=== PATIENT | female | born 1950 | race Two or more races ===

== ENCOUNTER 2022-03-01 14:48 | Outpatient (CLI) | payer OTHER | END 2022-03-01 14:58 | disposition home or self-care (01) | LOC: PPH VACUNA 14:48 | PROVIDERS: ATTEND Emergency Medicine Pediatric Emergency Medicine | DX: Z23 Encounter for immunization (principal) ==

== ENCOUNTER 2022-03-01 14:50 | Outpatient (CLI) | payer OTHER | END 2022-03-01 15:00 | disposition home or self-care (01) | LOC: PPH VACUNA 14:50 | PROVIDERS: ATTEND Emergency Medicine Pediatric Emergency Medicine | DX: Z23 Encounter for immunization (principal) ==

== ENCOUNTER → 2022-07-04 | Outpatient (CLI) | payer OTHER | END | disposition home or self-care (01) | LOC: MAMO-SONO 14:21 | PROVIDERS: ATTEND Obstetrics & Gynecology | DX: N60.11 Diffuse cystic mastopathy of right breast (principal); J45.998 Other asthma ==

== ENCOUNTER 2022-11-16 11:59 | Outpatient (CLI) | payer OTHER | END 2022-11-16 12:15 | disposition home or self-care (01) | LOC: PPH VACUNA 11:59 | PROVIDERS: ATTEND Emergency Medicine Pediatric Emergency Medicine | DX: Z23 Encounter for immunization (principal) ==

== ENCOUNTER 2022-12-06 08:47 | Outpatient (CLI) | payer OTHER | END 2022-12-06 08:51 | disposition home or self-care (01) | LOC: SONOGRAMA 08:47 | PROVIDERS: ATTEND Internal Medicine Gastroenterology | DX: R10.11 Right upper quadrant pain (principal) ==

== ENCOUNTER 2023-04-17 11:16 | Outpatient (CLI) | payer OTHER | END 2023-04-17 11:19 | disposition home or self-care (01) | LOC: RAD 11:16 | PROVIDERS: ATTEND Orthopaedic Surgery | DX: M17.12 Unilateral primary osteoarthritis, left knee (principal) ==

== ENCOUNTER 2023-05-01 07:38 | Outpatient (CLI) | payer OTHER | END 2023-05-01 07:39 | disposition home or self-care (01) | LOC: NUCLEAR 07:38 | PROVIDERS: ATTEND Specialist | DX: E21.3 Hyperparathyroidism, unspecified (principal); D35.1 Benign neoplasm of parathyroid gland | CPT/HCPCS: 78070; A9500 ==

== ENCOUNTER 2024-01-15 12:19 | Outpatient (CLI) | payer OTHER | END 2024-01-15 12:32 | disposition home or self-care (01) | LOC: TOM 12:19 | PROVIDERS: ATTEND Internal Medicine Gastroenterology | DX: R10.30 Lower abdominal pain, unspecified (principal); K57.30 Diverticulosis of large intestine without perforation or abscess without bleeding | CPT/HCPCS: 74177; Q9965 ==

== ENCOUNTER 2024-09-22 15:35 | Outpatient (CLI) | payer OTHER | END 2024-09-22 15:50 | disposition home or self-care (01) | LOC: TOM 15:35 | PROVIDERS: ATTEND Specialist | DX: J43.9 Emphysema, unspecified (principal) ==

== ENCOUNTER 2025-02-16 09:45 | Outpatient (CLI) | payer OTHER | END 2025-02-16 09:52 | disposition home or self-care (01) | LOC: RAD 09:45 | DX: M06.9 Rheumatoid arthritis, unspecified (principal) ==